=== PATIENT | female | born 1960 | race Caucasian/White ===

== ENCOUNTER 2016-11-21 04:51 | Emergency (ER) | payer OTHER ==
[~2016-11-21] VITALS: Ht 162.6 cm; Wt 109.1 kg
[~2016-11-21 04:51] MED LIST: CLONAZEPAM1 M1 PO; ERGO400C PO; GABA400C PO; GABA800T PO; HYDR1TAB PO; IND10 PO; NABU750T35 PO; OMEP40CA25 PO; Prazosin PO; QTP100T PO; QTP25T PO; RAME8TAB2 PO; VENL100T PO; [UNRECOGNIZED DRUG - OTHER] PO
[2016-11-21 04:55] VITALS: BP 177/99; PULSE 94; RESP 20; O2SAT 95
--- NOTE | 2016-11-21 05:15 | ED.REPORT ---
HPI-URI / Cough / Cold Date of Service Nov 21, 2016 ED Provider: Alexander Lopes MD This is a 56 year old female with a history of hypertension, hyperlipidemia, GERD, PE, and PTSD presenting to the emergency department complaining of diffuse chest pain with deep inspiration that began 16 hours ago. Associated symptoms include non-productive cough, chills, diffuse myalgias, malaise, and sore throat. Denies dysuria, abdominal pain, nausea, vomiting, or headache. Pt received a flu shot this year. Nursing Notes Stated Complaint: DIFFICULTY BREATHING Chief Complaint: FLU/Cold Symptoms Nursing Notes Reviewed: Yes Allergies: Coded Allergies: atenolol (Verified Allergy, Severe, SWEATING, 08/23/09) meperidine (Verified Allergy, Severe, 08/23/09) metoprolol (Verified Allergy, Severe, SWEATING, 08/23/09) morphine (Verified Allergy, Severe, RASH,ITCHING: TOLERATES HYDROCODONE, 08/23/09) prednisone (Verified Allergy, Severe, 08/23/09) Sulfa (Sulfonamide Antibiotics) (Verified Allergy, Unknown, 09/13/14) oxycodone (Verified Adverse Reaction, Severe, EUPHORIA, 08/23/09) Uncoded Allergies: ESTROGEN AGONIS (Allergy, Severe, 08/23/09) Scheduled ([Prazosin]) 2 MG PO 8am, 3pm ([Prazosin]) 3 MG PO 8pm ([Centrum With Iron]) 1 TAB PO DAILY ClonazePAM-Expunged Drug, Do Not Renew! (ClonazePAM-Expunged Drug, Do Not Renew! ) 1 Mg Tablet 2 MG PO BID ClonazePAM-Expunged Drug, Do Not Renew! (ClonazePAM-Expunged Drug, Do Not Renew! ) 1 Mg Tablet 1 MG PO 12 Noon Ergocalciferol-Expunged Drug, Do Not Renew! (Vitamin D-Expunged Drug, Do Not Renew!) 400 Unit Capsule 2,000 UNIT PO DAILY Gabapentin-Expunged Drug, Do Not Renew! (Neurontin-Expunged Drug, Do Not Renew! ) 400 Mg Capsule 400 MG PO 3pm Gabapentin-Expunged Drug, Do Not Renew! (Neurontin-Expunged Drug, Do Not Renew! ) 800 Mg Tablet 800 MG PO 8pm Hydrocod/APAP-Expunged, Do Not Renew! (VICODIN 5/500-Expunged Drug, Do Not Renew ) 1 Udtab Tablet 1 UDTAB PO 8am, noon, 3pm Hydrocod/APAP-Expunged, Do Not Renew! (VICODIN 5/500-Expunged Drug, Do Not Renew ) 1 Udtab Tablet 2 UDTAB PO 8pm Nabumetone-Expunged Drug, Do Not Renew! (Relafen-Expunged Drug, Do Not Renew!) 750 Mg Tablet 750 MG PO BID Omeprazole-Expunged Drug, Do Not Renew! (Omeprazole-Expunged Drug, Do Not Renew! ) 40 Mg Capsule.dr 40 MG PO DAILY Propranolol-Expunged Drug, Do Not Renew! (Propranolol-Expunged Drug, Do Not Renew!) 10 Mg Tab 1 TAB PO BID QUEtiapine-Expunged Drug, Do Not Renew! (SEROquel-Expunged Drug, Do Not Renew!) 25 Mg Tablet 25 MG PO 8am, noon QUEtiapine-Expunged Drug, Do Not Renew! (SEROquel-Expunged Drug, Do Not Renew!) 100 Mg Tablet 125 MG PO 8pm Ramelteon-Expunged Drug, Do Not Renew! (Rozerem-Expunged Drug, Do Not Renew!) 8 Mg Tablet 8 MG PO 8pm Venlafaxine-Expunged Drug, Do Not Renew! (Effexor-Expunged Drug, Do Not Renew!) 100 Mg Tablet 225 MG PO 8am Venlafaxine-Expunged Drug, Do Not Renew! (Effexor-Expunged Drug, Do Not Renew!) 100 Mg Tablet 150 MG PO 8pm General Time Seen by MD: 05:13 Chief Complaint Other Hx Obtained From: Patient Arrived By: Walk-in Onset Occurred: 13 - 16 hours ago Symptom Duration: Since onset Severity: Current: No pain currently Pertinent Negative: Pt denies other symptoms Recent Healthcare: No recent doctor visit, No recent hospitalization Similar Sx Previous: No Past Medical History Past Medical History ho pulmonary emboli in [address] scan as scheduled [facility] Treated PTSD, depression, anxiety History of GERD Hypertension Hyperlipidemia Hypothyroidism Past Surgical History Salpingo-oophorectomy Cholecystectomy Reports: Smoking History Never Smoker Social History Alcohol Use: Denies alcohol use Drug Use: Denies drug use Ambulatory Status Independent Review of Systems Constitutional: Reports: Chills, Malaise, Denies: Fever Ears / Nose / Throat: Denies: Sore throat Respiratory: Reports: Dyspnea on exertion, Non-productive cough, Denies: Shortness of breath GI: Denies: Abdominal pain, Constipation, Diarrhea, Nausea, Vomiting Complete sys rev & neg: except as marked. Physical Exam Initial Vital Signs Vital Signs (First) Date Time Temp Pulse Resp B/P Pulse Ox O2 Delivery O2 Flow Rate FiO2 11/21/16 04:55 36.4 94 20 177/99 95 11/21/16 06:08 Nasal Cannula 2 Initial VS: Reviewed, Vital signs abnormal Head / Eyes: Atraumatic, Normocephalic, PERRL Neck: Supple, Non-tender, Full range of motion Cardiovascular: Regular rate & rhythm, Heart sounds normal, Intact distal pulses Abdomen / GI: Soft, Non-tender, No guarding, No rebound, No distention Extremities: Vascular intact, Neuro intact, No swelling, No tenderness Skin: Warm, Dry, No cyanosis Neurologic: Alert, Oriented, Nonfocal Psychiatric: Mood/affect normal, Behavior normal, Normal thought content General/Constitutional: Awake, Alert Appearance / Presentation: Positive: Obese, Uncomfortable ENT: Airway patent, Mucous membranes moist, Pharynx NL, Tympanic membs NL, Ext aud canal NL, Nose exam NL, No sinus tenderness Respiratory / Chest: Breath sounds NL, Breath sounds = bilat, No respiratory distress, No rhonchi, No wheezing Interpretation & Diagnostics Lab Results Interpretation Result Diagram: 11/21/16 0530 11/21/16 0530 Test 11/21/16 05:20 11/21/16 05:30 Hold Morgan Top Tube Received (Received) White Blood Count 8.6th/mm3 (3.8-10.1) Red Blood Count 4.35mil/mm3 (3.90-5.20) Hemoglobin 14.1g/dL (12.0-15.6) Hematocrit 42.7% (35.0-46.0) Mean Corpuscular Volume 98.2fL (81-100) Mean Corpuscular Hemoglobin 32.4pg (27.0-35.0) Mean Corpuscular Hemoglobin Concent 33.0% (32.0-37.0) Red Cell Distribution Width 12.0% (12.3-15.4) Platelet Count 237bil/L (150-400) Neutrophils (%) (Auto) 83.8% (40-74) Lymphocytes (%) (Auto) 8.6% (14-46) Monocytes (%) (Auto) 6.5% (4-12) Eosinophils (%) (Auto) 0.8% (0-5) Basophils (%) (Auto) 0.1% (0-3) D-Dimer 0.8mg/L (<0.50) Sodium Level 143mEq/L (134-144) Potassium Level 4.3mEq/L (3.5-5.2) Chloride Level 102mEq/L (97-108) Carbon Dioxide Level 27mmol/L (18-29) Blood Urea Nitrogen 11mg/dL (6-24) Creatinine 0.75mg/dL (0.57-1.00) Estimat Glomerular Filtration Rate 114mL/min (>59) Glucose Level 114mg/dL (60-99) Calcium Level 9.3mg/dL (8.5-10.1) Magnesium Level 1.7mg/dL (1.6-2.6) Total Bilirubin 0.6mg/dL (0.0-1.2) Aspartate Amino Transf (AST/SGOT) 25U/L (0-50) Alanine Aminotransferase (ALT/SGPT) 23U/L (0-32) Alkaline Phosphatase 104U/L (25-150) Troponin T 0.010ug/L (0.0-0.011) Pro-B-Type Natriuretic Peptide 77.35pg/mL (0-287) Total Protein 7.6g/dL (6.4-8.4) Albumin 4.4g/dL (3.4-5.0) ECG Interpretation ECG Interpretation: NSR at a rate of 95 Time: 05:58 Interpreted by: ED physician Re-Eval/Medical Decision Med Decision/Clinical Course 56-year-old female whose workup was initiated by me and his care is now being turned over at change of shift to Dr. Manzano. Counseled Regarding: Diagnosis, Lab results, Need for follow-up Discharge & Departure Discharge Condition All VS Reviewed: Yes Condition: Stable Referrals: Kvng Norris MD (PCP) Care Transferred to: Dr. Manzano Care Transferred at: 06:00 Scribe Attestation Portions of this note were transcribed by Tanner Jeff. I, Dr. Lopes personally performed the history, physical exam and medical decision-making; I reviewed and confirmed the accuracy of the information in the transcribed note. Signed by: quintin Sanders. 11/20/2016, 06:00. copies to: Kvng Norris MD, Howard L MD Nov 21, 2016 05:15 TANNER JEFF Nov 21, 2016 05:22
[2016-11-21] MEDS ORDERED: 0.9% Sodium Chloride 1,000 ML IV ONE (05:19)
[2016-11-21 05:40] LABS: BASOPHILS % (AUTO) 0.1 % (0-3); EOSINOPHILS % (AUTO) 0.8 % (0-5); MONOCYTES % (AUTO) 6.5 % (4-12); Mean Corpuscular Hemoglobin 32.4 pg (27.0-35.0); Mean Corpuscular Volume 98.2 fL (81-100); NEUTROPHILS % (AUTO) 83.8 % (40-74); Platelet Count 237 bil/L (150-400)
[2016-11-21 06:02] LABS: TROPONIN T 0.01 ug/L (0.0-0.011)
[2016-11-21 06:08] VITALS: BP 141/79; PULSE 70; RESP 16; O2SAT 97
[2016-11-21 06:13] LABS: Magnesium 1.7 mg/dL (1.6-2.6)
[2016-11-21 07:05] VITALS: BP 150/58; PULSE 92; RESP 27; O2SAT 93
[2016-11-21] MEDS ORDERED: Albuterol 2.5 mg/3 mL Inhalation Solution NEB ONE ×2 (07:30→08:10)
[2016-11-21 07:38] LABS: APPEARANCE,URINE CLEAR (CLEAR,HAZY); COLOR,URINE STRAW (YELLOW); OCCULT BLOOD,URINE NEGATIVE (NEGATIVE); UROBILINOGEN,URINE NORMAL (NORMAL)
[2016-11-21] MEDS ORDERED: HYDROcodone-APAP 5-325 mg Tablet PO ONE (07:40)
[2016-11-21 07:45] VITALS: PULSE 94; RESP 18; O2SAT 94
[2016-11-21] MEDS ORDERED: Albuterol-Ipratropium 3 mL Inhalation Solution NEB ONE (08:10)
[2016-11-21 08:49] VITALS: BP 129/75; PULSE 117; RESP 24; O2SAT 94
--- NOTE | 2016-11-21 08:57 | DRSVH ---
PROCEDURE: X-RAY CHEST ONE VIEW, PORTABLE ([id number]) INDICATIONS: pleuritic chest pain TECHNIQUE: One view of the chest was acquired. COMPARISON: [facility], CR, XR CHEST 1VW (PORTABLE), 04/11/2016, 10:09. FINDINGS: Surgical changes and devices: None. Lungs and pleura: Mild chronic right hemidiaphragm elevation. No pleural effusions or pneumothorax. Lungs are clear. Mediastinum: Mediastinal contours appear normal. Heart size is normal. Bones and chest wall: No suspicious bony lesions. Overlying soft tissues appear unremarkable. IMPRESSION: No acute cardiopulmonary disease. Mild chronic right hemidiaphragm elevation. Dictated by: Gina Blake M.D. on 11/21/2016 at 8:54 Approved by: Gina Blake M.D. on 11/21/2016 at 8:56
[2016-11-21] MEDS ORDERED: ALBU8.5H2 INHALATION (09:12)
[2016-11-21] MEDS ORDERED: BENZ-12 PO (09:12)
[2016-11-21 09:37] VITALS: BP 127/47; PULSE 102; RESP 21
--- NOTE | 2016-11-21 11:13 | DRSVH ---
PROCEDURE: CT ANGIO CHEST PULMONARY EMBOLISM ([id number]) INDICATIONS: dyspnea, chest pain, elevated ddimer, HO PE TECHNIQUE: After the administration of intravenous contrast, 2 mm thick sections acquired from the pulmonary api moise to the posterior costophrenic angles. 3-dimensional maximum intensity projection (MIP) coronal a nd sagittal reformats were then acquired through the thorax. For radiation dose reduction, the follo wing was used: automated exposure control, adjustment of mA and/or kV according to patient size. COMPARISON: [facility], CT, CHEST ANGIO-PE, 10/27/2013, 14:46. [facility], CT, CHEST ANGIO-PE, 02/11/2011, 16:21. [facility], CT, CHEST ANGIO-PE, 03/24/2010, 23:24. FINDINGS: Image quality: Excellent. Pulmonary arteries: Pulmonary arteries are normal in size, and demonstrate no intraluminal filling d efects to suggest central pulmonary embolism. Lungs and pleura: Mild bibasilar scarring versus atelectasis. No evidence of pneumonia, nor edema. No pleural effusions or pneumothorax. Central and peripheral airways are patent. Mediastinum: Heart size is normal, without pericardial effusion. No mediastinal or hilar adenopathy . Thoracic aorta is normal in caliber and enhancement. Esophagus is normal in caliber, without hiat al hernia. Bones and chest wall: No suspicious bony lesions. Moderate diffuse thoracic kyphosis. Ribs and thor acic spine appear intact throughout. Thyroid gland is within normal limits. No axillary or supracla vicular adenopathy. Abdomen: Visualized portions of the upper abdomen demonstrate diffusely decreased density, indicatin g fatty infiltration. IMPRESSION: 1. No pulmonary embolus. No acute process. 2. Fatty infiltration of the liver. 3. Concordant with preliminary interpretation. Dictated by: Mando Stern M.D. on 11/21/2016 at 11:07 Approved by: Mando Stern M.D. on 11/21/2016 at 11:11
== END 2016-11-21 09:36 | disposition home or self-care (01) ==
LOC: SED 04:51
DX: J06.9 Acute upper respiratory infection, unspecified (principal); J45.909 Unspecified asthma, uncomplicated; I10 Essential (primary) hypertension; E78.5 Hyperlipidemia, unspecified; K21.9 Gastro-esophageal reflux disease without esophagitis; E03.9 Hypothyroidism, unspecified; Z86.711 Personal history of pulmonary embolism; Z86.59 Personal history of other mental and behavioral disorders; Z88.8 Allergy status to other drugs, medicaments and biological substances; Z88.5 Allergy status to narcotic agent; Z88.2 Allergy status to sulfonamides
CPT/HCPCS: 36415; 71010; 71275; 80053; 81000; 83735; 83880; 84484; 85025; 85379; 87086; 87088; 87804; 93005; 94640; 94664; 96360; 99285; J7030; J7613; J7620; Q9967